=== PATIENT | male | born 1985 | race Caucasian/White ===

== ENCOUNTER 2018-08-20 09:38 | Emergency (ER) | payer MEDICAID ==
[~2018-08-20] VITALS: Ht 170.2 cm; Wt 63.5 kg
[2018-08-20 09:43] VITALS: BP 132/85
--- NOTE | 2018-08-20 09:50 | NUR ---
32 yo m bib girlfriend s/p head injury. pt woke up this morning, felt very dizzy and fainted, hit his head against a metal door hinge. girlfriend reports that he was unconscious less than 5 minutes for about 2-3 minutes, reports that pt "was shaking and shaking', then when he finally opened his eyes, pt was unaware of what happened. pt denies hx of seizures. aaox4, gcs 15, perrla intact. denies n/v at this time, pt appears very lethargic. pt presents w/ laceration to the left top portion of the head. bleeding appears well controlled at this time, wound full thickness approx 1.3 inch long, bed down, bedrail up x 1, er md aware and nottified of pt status. hx denies rx denies
--- NOTE | 2018-08-20 09:50 | NUR ---
PATIENT AMBULATED TO BED 1 AT THIS TIME.
--- NOTE | 2018-08-20 10:00 | NUR ---
Patient being evaluated by physician at bedside.
[2018-08-20 10:10] LABS: BASOPHILS % (AUTO) 0.3 % (0.0-2.0); EOSINOPHILS # (AUTO) 0.3 K/uL (0-0.4); EOSINOPHILS % (AUTO) 3.7 % (0.0-4.0); HEMATOCRIT 47.8 % (36-52); HEMOGLOBIN 15.9 g/dL (12.0-18.0); LYMPHOCYTES # (AUTO) 1.7 K/uL (2.0-11.5); LYMPHOCYTES % (AUTO) 23.2 % (20.5-51.1); MEAN CORPUSCULAR HEMOGLOBIN 30 pg (27-31); MEAN CORPUSCULAR HGB CONC 33 g/dL (33-37); MEAN CORPUSCULAR VOLUME 90.1 fL (80-94); MONOCYTES # (AUTO) 0.5 K/uL (0.8-1.0); NEUTROPHILS # (AUTO) 4.8 K/uL (1.8-7.7); NEUTROPHILS % (AUTO) 65.8 % (42.2-75.2); PLATELET COUNT (AUTO) 208 K/uL (140-450); RED BLOOD CELL COUNT(AUTO) 5.31 MIL/uL (4.20-6.10); RED CELL DISTRIBUTION WIDTH 12.6 % (11.6-13.7); WHITE BLOOD COUNT (AUTO) 7.2 K/uL (4.8-10.8)
[2018-08-20] MEDS ORDERED: MORPHINE SULFATE 4 MG/ML SYR IVP ONE (10:10)
[2018-08-20] MEDS ORDERED: ONDANSETRON 4 MG/2 ML VIAL IVP ONE (10:10)
[2018-08-20 10:18] LABS: ANION GAP 9.3 (8-16); CARBON DIOXIDE 27.7 mmol/L (21-32); CHLORIDE 104 mmol/L (98-107); CREATININE 1.1 mg/dL (0.7-1.3); GFR ARICAN-AMERICAN 100 mL/min (>90); GLUCOSE 63 mg/dL (74-106); SODIUM SERUM 137 mmol/L (136-145); UREA NITROGEN, BLOOD 11 mg/dL (7-18)
[2018-08-20 10:25] LABS: ASPARTATE AMINOTRANSFERASE 17 U/L (15-37); TOTAL BILIRUBIN 0.6 mg/dL (0.0-1.0)
[2018-08-20] MEDS ORDERED: NACL 0.9% 1,000 ML IV ONE (10:50)
[2018-08-20 11:21] LABS: BARBITURATE, URINE NEG. ng/ml (NEG <=200); BENZODIAZEPINE, URINE NEG. ng/mL (NEG <=200); CANNABINOID, URINE NEG. ng/mL (NEG <=50); COCAINE, URINE NEG. ng/mL (NEG <=300); OPIATE, URINE NEG. ng/mL (NEG <=2000); PHENCYCLIDINE SCREEN,URINE NEG. ng/mL (NEG <=25)
[2018-08-20 11:32] LABS: APPEARANCE,URINE CLEAR (CLEAR); BILIRUBIN,URINE NEGATIVE (NEGATIVE); BLOOD, URINE SMALL (NEGATIVE); COLOR,URINE YELLOW (YELLOW); LEUKOCYTE ESTERASE ,URINE NEGATIVE (NEGATIVE); NITRITE, URINE NEGATIVE (NEGATIVE); PH,URINE 6.5 (5.0-9.0); UGLUCOSE NEGATIVE (NEGATIVE)
[2018-08-20 11:34] LABS: RBC,URINE 0-5 (RARE) /HPF (0-5); WBC,URINE NONE SEEN /HPF (0-5)
[2018-08-20] MEDS ORDERED: BACITRACIN OINT 500 UNITS/GM PKT TP ONE (11:35)
[2018-08-20 12:09] VITALS: BP 125/81
--- NOTE | 2018-08-20 12:09 | NUR ---
Patient discharged with v/s stable. Written and verbal after care instructions given and explained. Patient alert, oriented and verbalized understanding of instructions. Ambulatory with steady gait. All questions addressed prior to discharge. ID band removed. Patient advised to follow up with PMD. Rx of norco, bactrium, motrin given. Patient educated on indication of medication including possible reaction and side effects. Opportunity to ask questions provided and answered.
== END 2018-08-20 12:09 | disposition home or self-care (01) ==
LOC: MED 09:38
DX: S01.01XA Laceration without foreign body of scalp, initial encounter (principal); R55 Syncope and collapse; W18.09XA Striking against other object with subsequent fall, initial encounter; Y93.89 Activity, other specified; Y92.89 Other specified places as the place of occurrence of the external cause; Y99.8 Other external cause status
CPT/HCPCS: 12002; 36415; 70450; 80053; 80305; 81001; 84484; 85025; 90471; 90715; 96361; 96374; 96375; 99284; G0482; J2270; J2405; J7030